=== PATIENT | female | born 1975 | race Caucasian/White ===

== ENCOUNTER → 2018-03-14 | Outpatient (CLI) | payer OTHER ==
[2018-03-14 13:23] LABS: BASO # 0.1 10^3/uL (0.0-0.2); EOS # 0.1 10^3/uL (0.0-0.50); EOS % 2.2 % (0.0-3.0); HEMATOCRIT 40.5 % (36.0-47.0); HEMOGLOBIN 13.5 g/dl (12.0-15.5); IMMATURE GRANULOCYTE % 0.2 % (0-3.0); LYMPH # 1.5 10^3/uL (1.5-4.5); LYMPH % 29.3 % (24.0-44.0); MEAN CORPUSCULAR HEMOGLOBIN 30.8 pg (27.0-33.0); MEAN CORPUSCULAR HGB CONC 33.3 g/dl (32.0-36.5); MEAN CORPUSCULAR VOLUME 92.5 fl (80.0-96.0); MONO # 0.6 10^3/uL (0.0-0.8); MONO % 10.9 % (0.0-5.0); NEUTROPHILS # 2.9 10^3/uL (1.8-7.7); NEUTROPHILS % 56.4 % (36.0-66.0); PLATELET COUNT, AUTOMATED 252 10^3/uL (150-450); RED BLOOD COUNT 4.38 10^6/uL (4.00-5.40); RED CELL DISTRIBUTION WIDTH 11.8 % (11.5-14.5); WHITE BLOOD COUNT 5.1 10^3/uL (4.0-10.0)
[2018-03-14 13:30] LABS: ALBUMIN 4.3 GM/DL (3.2-5.2); ALBUMIN/GLOBULIN RATIO 1.16 (1.00-1.93); ALKALINE PHOSPHATASE 48 U/L (45-117); ALT/SGPT 24 U/L (12-78); AMYLASE 29 U/L (25-115); ANION GAP 7 MEQ/L (8-16); AST/SGOT 12 U/L (7-37); BILIRUBIN,TOTAL 0.7 MG/DL (0.2-1.0); BLOOD UREA NITROGEN 11 MG/DL (7-18); CALCIUM LEVEL 9.3 MG/DL (8.5-10.1); CARBON DIOXIDE LEVEL 31 MEQ/L (21-32); CHLORIDE LEVEL 104 MEQ/L (98-107); CREATININE FOR GFR 0.98 MG/DL (0.55-1.30); GLOMERULAR FILTRATION RATE > 60.0 (>58); GLUCOSE, FASTING 92 MG/DL (70-100); LIPASE 86 U/L (73-393); POTASSIUM SERUM 4.6 MEQ/L (3.5-5.1); SODIUM LEVEL 142 MEQ/L (136-145)
== END ==
LOC: M WUC 09:21
DX: M25.78 Osteophyte, vertebrae (principal); S29.012A Strain of muscle and tendon of back wall of thorax, initial encounter; X58.XXXA Exposure to other specified factors, initial encounter; Y92.89 Other specified places as the place of occurrence of the external cause; R10.84 Generalized abdominal pain
CPT/HCPCS: 82150

== ENCOUNTER → 2020-01-18 | Outpatient (REF) | payer OTHER ==
[2020-01-18 17:49] LABS: APPEARANCE, URINE HAZY (CLEAR); BACTERIA, URINE AUTO 1+ (NEGATIVE); BILIRUBIN, URINE AUTO NEGATIVE (NEGATIVE); BLOOD, URINE BLOOD 3+ (NEGATIVE); COLOR, URINE AMBER (YELLOW); GLUCOSE, URINE (UA) AUTO NEGATIVE (NEGATIVE); KETONE, URINE AUTO NEGATIVE (NEGATIVE); LEUKOCYTE ESTERASE, URINE AUTO 3+ (NEGATIVE); MUCUS, URINE SMALL (NEGATIVE); NITRITE, URINE AUTO POSITIVE (NEGATIVE); PROTEIN, URINE AUTO 2+ mg/dL (NEGATIVE); RBC, URINE AUTO TNTC /HPF (0-3); SPECIFIC GRAVITY URINE AUTO 1.004 (1.002-1.035); SQUAMOUS EPITHELIAL CELL UR AU 0 /HPF (0-6); WBC, URINE AUTO TNTC /HPF (0-3)
== END ==
LOC: M LAB REF 17:04
PROVIDERS: ATTEND Family Medicine
DX: R31.9 Hematuria, unspecified (principal)

== ENCOUNTER → 2021-03-10 | Outpatient (CLI) | payer OTHER ==
--- NOTE | 2021-03-13 14:57 | REP ---
INDICATION: GARY SCR MAMMO/Z12.31. COMPARISON: Multiple. TECHNIQUE: Digital screening mammography was carried out bilaterally in the CC and MLO projections using both 2D and 3D modalities and compared to the prior exams. There are no prior DBT images to review. By history, the patient has no complaints of a palpable breast abnormality or other significant breast complaints. FINDINGS: The breasts are unchanged in size and shape. Once again, markedly dense heterogenous fibroglandular elements are seen bilaterally to such a degree that the sensitivity of the mammogram in detecting cancer is decreased. In the right breast lower outer quadrant near the 7 to 8 o'clock position there is a potential tommy density. This is seen best on the DBT images. No other suspicious features are seen in either breast. There are no suspicious calcifications. There is no skin thickening or nipple retraction. The Volpara volumetric breast density pattern is D IMPRESSION: BIRADS/ACR category 0 mammogram. Potential tommy density right breast as described above and for which diagnostic digital spot compression views are recommended in the CC and MLO projections. The spot compression views should be obtained using DBT technique. Additionally, diagnostic ultrasonography may be necessary. Due to the patient's breast density score bilateral whole breast screening ultrasound/bilateral breast MRI is warranted at this time. This patient's Tyrer-Cuzick lifetime breast cancer risk assessment score is 15.2%. This mammogram was interpreted with the aid of an FDA-approved computer-aided detection system. The patient states she had a clinical breast exam in February 2021. The patient letter being requested is M0 RECOMMENDATION: As above <Electronically signed by Timbo Ford > 03/13/21 [id number]
== END ==
LOC: M WHC 16:20
PROVIDERS: ATTEND Obstetrics & Gynecology
DX: Z12.31 Encounter for screening mammogram for malignant neoplasm of breast (principal); R92.8 Other abnormal and inconclusive findings on diagnostic imaging of breast

== ENCOUNTER → 2021-03-22 | Outpatient (CLI) | payer OTHER ==
--- NOTE | 2021-03-22 08:51 | REP ---
INDICATION: URINARY INCONTINENCE, CYSTOCLE. COMPARISON: None. TECHNIQUE: Trans abdominal and transvaginal ultrasound. FINDINGS: The uterus measures 7.4 x 3.2 x 4.1 cm. The echo pattern is normal. There is no mass. The endometrium measures 3 mm which is within normal limits. The ovaries are not visualized. There is no evidence of pelvic mass or fluid in the cul-de-sac. Bladder unremarkable. IMPRESSION: Normal uterus. The ovaries are not visualized. <Electronically signed by Ayo Peterson > 03/22/21 [id number]
== END ==
LOC: M WHC 07:03
PROVIDERS: ATTEND Obstetrics & Gynecology
DX: R32 Unspecified urinary incontinence (principal)

== ENCOUNTER → 2021-04-06 | Outpatient (CLI) | payer OTHER ==
--- NOTE | 2021-04-06 10:11 | REP ---
INDICATION: ADDITIONAL VIEWS RT BREAST. COMPARISON: Comparison mammography March 10, 2021 and October 06, 2019. TECHNIQUE: Magnified focal spot-compression CC and MLO views of the right breast are obtained. Spot compression 3D tomography is deployed. A true mL view is obtained and a repeat MLO projection is obtained. Targeted right breast ultrasound is carried out. This mammogram was interpreted with the aid of an FDA-approved computer-aided detection system. FINDINGS: On diagnostic mammography images, the 5 mm nodule identified on the screening study could not be seen. Repeat MLO view was obtained in this also fails to identify the nodular density. Breast parenchyma is extremely dense in a pattern which may inhibit the sensitivity of mammography. Given that a definite nodule was observed on screening mammographic images, a inferolateral quadrant sonogram was carried out. The Volpara volumetric breast density pattern is D. Targeted ultrasound: Targeted right breast sonography inferolateral quadrant demonstrates heterogeneous fibroglandular background echotexture. In the 7 o'clock position, 2.8 cm from the nipple there is a 5 x 4 x 4 mm cyst with a relatively low shear wave elastography number. This is felt to account for the mammographic opacity. No suspicious ultrasound findings. IMPRESSION: BIRADS/ACR category 2 benign right breast mammographic and sonographic findings. Small right breast cyst identified. This patient's Tyrer-Cuzick lifetime breast cancer risk assessment score is 15.2%. RECOMMENDATION: Repeat screening mammography recommended 1 year (for women over 40). The patient letter being requested is M1 dense. <Electronically signed by Alfie eWlch > 04/06/21 [id number]
== END ==
LOC: M WHC 08:04
PROVIDERS: ATTEND Obstetrics & Gynecology
DX: Z12.31 Encounter for screening mammogram for malignant neoplasm of breast (principal)

== ENCOUNTER → 2022-05-03 | Outpatient (CLI) | payer OTHER | LOC: M WHC 07:45 | PROVIDERS: ATTEND Family Medicine | DX: Z12.31 Encounter for screening mammogram for malignant neoplasm of breast (principal) ==

== ENCOUNTER → 2023-05-22 | Outpatient (CLI) | payer BC | LOC: M WHC 12:49 | PROVIDERS: ATTEND Family Medicine | DX: R92.2 Inconclusive mammogram (principal) | CPT/HCPCS: 76642; 77065; G0279 ==

== ENCOUNTER → 2023-12-04 | Outpatient (CLI) | payer BC | LOC: M WHC 07:26 | PROVIDERS: ATTEND Family Medicine | DX: N63.10 Unspecified lump in the right breast, unspecified quadrant (principal) ==

== ENCOUNTER 2023-12-25 07:14 | Day surgery (SDC) | payer BC ==
[~2023-12-25] VITALS: Ht 175.3 cm; Wt 70.7 kg
[~2023-12-25 07:14] MED LIST: ESTR2TAB3 PO; LEVO25TA34 PO; LEVO50TA45 PO; LR 1,000 ML IV SCH
[2023-12-25 07:54] LABS: HEMATOCRIT 40.2 % (36.0-47.0); HEMOGLOBIN 13.4 g/dl (12.0-15.5); MEAN CORPUSCULAR HEMOGLOBIN 30.4 pg (27.0-33.0); MEAN CORPUSCULAR HGB CONC 33.3 g/dl (32.0-36.5); MEAN CORPUSCULAR VOLUME 91.2 fl (80.0-96.0); PLATELET COUNT, AUTOMATED 255 10^3/uL (150-450); RED BLOOD COUNT 4.41 10^6/uL (4.00-5.40); WHITE BLOOD COUNT 5.3 10^3/uL (4.0-10.0)
[2023-12-25] MEDS ORDERED: BIOT1CAP2 PO (07:57)
[2023-12-25] MEDS ORDERED: CALC600T61 PO (07:57)
[2023-12-25] MEDS ORDERED: CALC500C16 PO (07:57)
[2023-12-25] MEDS ORDERED: THERTAB52 PO (07:57)
[2023-12-25] MEDS: LR 1,000 ML IV SCH (08:14)
[2023-12-25] MEDS: VASOPRESSIN INJ 20UNITS/ML 1ML VIAL As Ordered ONE (09:06)
[2023-12-25] MEDS: ceFAZolin SOD 2 GM in IV 1 EA IV ONE (09:18)
[2023-12-25] MEDS ORDERED: IBUP-1022 PO (09:20)
[2023-12-25] MEDS ORDERED: OXYC1TAB23 PO (09:20)
[2023-12-25] MEDS ORDERED: ONDANSETRON 4MG 2ML VIAL As Ordered ONE (09:33)
[2023-12-25] MEDS ORDERED: fentaNYL 250 MCG/5 ML INJECTION As Ordered ONE (09:33)
[2023-12-25] MEDS ORDERED: ePHEDrine SULFATE 25 MG/5 ML(5MG/ML) SYRINGE As Ordered ONE (09:33)
[2023-12-25] MEDS ORDERED: METOCLOPRAMIDE INJ 10MG/2ML VIAL As Ordered ONE (09:33)
[2023-12-25] MEDS ORDERED: LIDOCAINE 2% 100MG/5ML SDV (FOR ANES.) As Ordered ONE (09:33)
[2023-12-25] MEDS ORDERED: ACETAMINOPHEN 1000MG 100ML IV BAG As Ordered ONE (09:33)
[2023-12-25] MEDS ORDERED: KETOROLAC 60MG 2ML VIAL As Ordered ONE (09:33)
[2023-12-25] MEDS ORDERED: propofoL 200 MG/20 ML VIAL As Ordered ONE (09:33)
[2023-12-25] MEDS ORDERED: MIDAZOLAM INJ 2MG/2ML VIAL As Ordered ONE (09:33)
[2023-12-25] MEDS ORDERED: ONDANSETRON 4MG 2ML VIAL IV PRN (10:30)
[2023-12-25] MEDS ORDERED: MORPHINE 2 MG/ML 1ML VIAL IV PRN (10:30)
[2023-12-25] MEDS: fentaNYL 100 MCG/2 ML INJECTION IV PRN (10:59)
[2023-12-25] MEDS: oxyCODONE 5MG TAB PO PRN (11:02)
[2023-12-25 11:50] VITALS: BP 122/72; TEMP 97; O2SAT 97
== END 2023-12-25 12:00 | disposition home or self-care (01) ==
LOC: M SDC 07:14
PROVIDERS: ATTEND Specialist
DX: N81.10 Cystocele, unspecified (principal); N39.3 Stress incontinence (female) (male); Z79.899 Other long term (current) drug therapy
CPT/HCPCS: 36415; 57240; 57288; 85027; 86850; 86900; 86901; 88302; C1771; J0131; J0665; J0690; J1100; J1885; J2250; J2405; J2598; J2765; J3010

== ENCOUNTER → 2024-06-08 | Outpatient (CLI) | payer BC ==
[~2024-06-08] MED LIST changes: +BIOT1CAP2 PO; +CALC500C16 PO; +CALC600T61 PO; +IBUP-1022 PO; -LR 1,000 ML IV SCH; +OXYC1TAB23 PO; +THERTAB52 PO
== END ==
LOC: M WHC 16:32
PROVIDERS: ATTEND Family Medicine
DX: Z12.31 Encounter for screening mammogram for malignant neoplasm of breast (principal)